=== PATIENT | male | born 2000 | race Caucasian/White ===

== ENCOUNTER 2021-08-16 22:20 | Emergency (ER) | payer OTHER ==
[~2021-08-16] VITALS: Ht 177.8 cm; Wt 68.2 kg
[2021-08-16 22:21] VITALS: BP 127/69
[2021-08-17] MEDS ORDERED: LIDOCAINE 1% 10 ML VIAL SQ ONE (00:15)
[2021-08-17] MEDS ORDERED: BACITRACIN 0.9 GM PACKET OINTMENT TP ONE (00:15)
== END 2021-08-17 00:58 | disposition home or self-care (01) ==
LOC: EMS 22:25
DX: S61.211A Laceration without foreign body of left index finger without damage to nail, initial encounter (principal); W45.8XXA Other foreign body or object entering through skin, initial encounter; Y93.89 Activity, other specified; Y92.89 Other specified places as the place of occurrence of the external cause; Y99.8 Other external cause status
CPT/HCPCS: 12001; 99282; J3490

== ENCOUNTER 2021-11-10 23:57 | Emergency (ER) | payer OTHER ==
[~2021-11-10] VITALS: Ht 175.3 cm; Wt 50.3 kg
[2021-11-10 23:59] VITALS: BP 134/84
== END 2021-11-11 01:51 | disposition left against medical advice (07) ==
LOC: EMS 23:58
DX: Z53.21 Procedure and treatment not carried out due to patient leaving prior to being seen by health care provider (principal)

== ENCOUNTER 2021-11-23 23:03 | Emergency (ER) | payer OTHER ==
[~2021-11-23] VITALS: Ht 175.3 cm; Wt 50.3 kg
[2021-11-23] MEDS ORDERED: IBUP-2071 PO (23:17)
[2021-11-23] MEDS ORDERED: AMOX500C2 PO (23:17)
[2021-11-24 04:23] VITALS: BP 114/65
== END 2021-11-24 05:14 | disposition home or self-care (01) ==
LOC: EMS 23:14
DX: S00.03XA Contusion of scalp, initial encounter (principal); S00.83XA Contusion of other part of head, initial encounter; S10.93XA Contusion of unspecified part of neck, initial encounter; S40.012A Contusion of left shoulder, initial encounter; F10.20 Alcohol dependence, uncomplicated; F12.10 Cannabis abuse, uncomplicated; F17.210 Nicotine dependence, cigarettes, uncomplicated; Y04.0XXA Assault by unarmed brawl or fight, initial encounter; Y93.89 Activity, other specified; Y92.89 Other specified places as the place of occurrence of the external cause; Y99.8 Other external cause status
CPT/HCPCS: 70450; 70486; 71045; 99285

== ENCOUNTER 2022-02-06 11:03 | Emergency (ER) | payer OTHER ==
[~2022-02-06] VITALS: Ht 177.8 cm; Wt 59.1 kg
[~2022-02-06 11:03] MED LIST: AMOX500C2 PO; IBUP-2071 PO
[2022-02-06] MEDS ORDERED: ARIP5TAB37 PO (11:08)
[2022-02-06] MEDS ORDERED: ARIP10TA38 PO (11:59)
[2022-02-06] MEDS ORDERED: EMTR1TAB13 PO (11:59)
[2022-02-06 13:04] VITALS: BP 105/60
[2022-02-06] MEDS ORDERED: CEPH-558 PO (13:05)
== END 2022-02-06 13:25 | disposition home or self-care (01) ==
LOC: EMS 11:05
DX: S61.411A Laceration without foreign body of right hand, initial encounter (principal); J45.909 Unspecified asthma, uncomplicated; M41.9 Scoliosis, unspecified; F17.210 Nicotine dependence, cigarettes, uncomplicated; F15.90 Other stimulant use, unspecified, uncomplicated; F12.90 Cannabis use, unspecified, uncomplicated; W25.XXXA Contact with sharp glass, initial encounter; Y93.89 Activity, other specified; Y92.89 Other specified places as the place of occurrence of the external cause; Y99.8 Other external cause status
CPT/HCPCS: 12001; 99283

== ENCOUNTER 2023-10-15 01:02 | Inpatient (IN) | payer MEDICAID, OTHER ==
[~2023-10-15] VITALS: Ht 167.6 cm; Wt 45.8 kg
[~2023-10-15 01:02] MED LIST changes: -AMOX500C2 PO; +ARIP10TA38 PO; +CEPH-558 PO; +EMTR1TAB13 PO; +IBUP-1493 PO; -IBUP-2071 PO
[2023-10-15 01:55] LABS: EOSINOPHILS % (AUTO) 0.2 % (1.0-6.0); HEMATOCRIT 45.3 % (41-53); HEMOGLOBIN 15.8 g/dL (13.5-17.5); LYMPHOCYTES # (AUTO) 2.9 K/uL (1.0-4.8); MEAN CORPUSCULAR HEMOGLOBIN 33.2 pg (26.0-34.0); MEAN CORPUSCULAR VOLUME 95 fL (80-100); MONOCYTES # (AUTO) 0.6 K/uL (0.1-1.0); MONOCYTES % (AUTO) 8.6 % (2.0-9.0); NEUTROPHILS # (AUTO) 3.2 K/uL (1.8-7.7); NEUTROPHILS % (AUTO) 47.2 % (40.0-70.0); PLATELET COUNT (AUTO) 278 K/uL (150-450); RED BLOOD CELL COUNT(AUTO) 4.77 MIL/uL (4.50-5.90); RED CELL DISTRIBUTION WIDTH 13.5 % (11.5-14.5); WHITE BLOOD COUNT (AUTO) 6.7 K/uL (4.5-11.0)
[2023-10-15 02:03] LABS: ANION GAP 10 mmol/L (8-16); CALCIUM, TOTAL 9.3 mg/dL (8.8-10.5); CARBON DIOXIDE 28 mmol/L (22-29); CHLORIDE 103 mmol/L (98-107); CREATININE 1.04 mg/dL (0.60-1.30); GLOMERULAR FILTR. RATE CALC > 60 mL/min (>60); GLUCOSE,RANDOM 100 mg/dL (70-110); POTASSIUM 3.8 mmol/L (3.5-5.1); SODIUM SERUM 141 mmol/L (136-145); UREA NITROGEN, BLOOD 14 mg/dL (7-18)
[2023-10-15 02:10] LABS: ALANINE AMINOTRANSFERASE 22 U/L (12-78); ALBUMIN 4.2 g/dL (3.4-5.0); ALKALINE PHOSPHATASE 82 U/L (46-116); ASPARTATE AMINOTRANSFERASE 15 U/L (15-37); BILIRUBIN,TOTAL 0.8 mg/dL (0.1-1.0)
[2023-10-15 02:14] LABS: ALCOHOL, BLOOD (SERUM) < 3 mg/dL (0-10)
[2023-10-15] MEDS: LORazepam 1 MG TABLET PO ONE (02:18)
[2023-10-15] MEDS: ACETAMINOPHEN 500 MG TABLET PO ONE (02:18)
[2023-10-15 03:27] LABS: ALCOHOL, URINE DRUG SCREEN NEGATIVE (NEGATIVE); AMPHET/METH SCREEN,URINE POSITIVE (NEGATIVE); BARBITURATE SCREEN, URINE NEGATIVE (NEGATIVE); BENZODIAZEPINES SCREEN,URINE NEGATIVE (NEGATIVE); CANNABINOID SCREEN,URINE POSITIVE (NEGATIVE); COCAINE SCREEN,URINE NEGATIVE (NEGATIVE); METHADONE SCREEN, URINE NEGATIVE (NEGATIVE); OPIATE SCREEN,URINE NEGATIVE (NEGATIVE); PHENCYCLIDINE SCREEN,URINE NEGATIVE (NEGATIVE)
[2023-10-15] MEDS ORDERED: HALOPERIDOL 5 MG TABLET PO PRN (03:45)
[2023-10-15 06:03] LABS: APPEARANCE,URINE CLEAR (CLEAR); BILIRUBIN,URINE NEGATIVE (NEGATIVE); COLOR,URINE YELLOW (YELLOW); GLUCOSE, URINE (UA) NEGATIVE (NEGATIVE); LEUKOCYTE ESTERASE ,URINE NEGATIVE (NEGATIVE); NITRATE,URINE NEGATIVE (NEGATIVE); OCCULT BLOOD,URINE NEGATIVE (NEGATIVE); PROTEIN,URINE TRACE mg/dL (NEGATIVE); SPECIFIC GRAVITIY, URINE 1.024 (1.003-1.030); UROBILINOGEN,URINE <=1.0 mg/dL (<=1.0)
[2023-10-15 10:33] LABS: COVID AG,FIA SOURCE NASAL SWAB
[2023-10-15 10:53] LABS: SARS-COV2 (COVID) ANTIGEN,FIA Negative (Negative)
[2023-10-15] MEDS ORDERED: HALOPERIDOL LACTATE 5 MG/ML VIAL ONE (11:34)
[2023-10-15] MEDS ORDERED: LORazepam 2 MG/ML VIAL ONE (11:34)
[2023-10-15] MEDS ORDERED: DiphenhydrAMINE HCL 50 MG/ML VIAL ONE (11:34)
[2023-10-15] MEDS: LORazepam 2 MG/ML VIAL IM ONE (11:41)
[2023-10-15] MEDS: DiphenhydrAMINE HCL 50 MG/ML VIAL IM ONE (11:42)
[2023-10-15] MEDS ORDERED: BICT1TAB PO (11:43)
[2023-10-15] MEDS: HALOPERIDOL LACTATE 5 MG/ML VIAL IM ONE (11:43)
[2023-10-16 00:19] VITALS: BP 97/61; PULSE 50; RESP 18; TEMP 97.7
[2023-10-16 00:22] VITALS: BP 97/61; PULSE 50; RESP 18; TEMP 97.7; O2SAT 99
[2023-10-16 08:15] VITALS: BP 91/59; PULSE 95; RESP 17; TEMP 97.2; O2SAT 95
[2023-10-16] MEDS: DIVALPROEX SODIUM 500 MG DR TABLET PO SCH (16:29)
[2023-10-16] MEDS ORDERED: ACETAMINOPHEN 325 MG TABLET PO PRN (18:15)
[2023-10-16] MEDS ORDERED: LOPERAMIDE HCL 2 MG CAPSULE PO PRN (18:15)
[2023-10-16] MEDS ORDERED: ALBUTEROL SULFATE HFA 90 MCG/PUFF 8 GM INHALER IH PRN (18:15)
[2023-10-16] MEDS ORDERED: DOCUSATE SODIUM 100 MG CAPSULE PO PRN (18:15)
[2023-10-16] MEDS ORDERED: OMEPRAZOLE 20 MG CAPSULE PO PRN (18:15)
[2023-10-16] MEDS ORDERED: BENZOCAINE/MENTHOL LOZENGE PO PRN (18:15)
[2023-10-16] MEDS ORDERED: ONDANSETRON HCL 4 MG TABLET PO PRN (18:15)
[2023-10-16] MEDS ORDERED: IBUPROFEN 600 MG TABLET PO PRN (18:15)
[2023-10-16] MEDS ORDERED: MAG HYDROX/ALUMINUM HYD/SIMETH ES 30 ML SUSPENSION UDCUP PO PRN (18:15)
[2023-10-16] MEDS ORDERED: CloNIDine HCL 0.1 MG TABLET PO PRN (18:15)
[2023-10-16] MEDS ORDERED: BACITRACIN 28 GM OINTMENT TP PRN (18:15)
[2023-10-16] MEDS ORDERED: MAGNESIUM HYDROXIDE SUSPENSION 30 ML UDCUP PO PRN (18:15)
[2023-10-16] MEDS ORDERED: PETROLATUM,WHITE 28 GM JELLY TP PRN (18:15)
[2023-10-16] MEDS: BICTEGRAV/EMTRICIT/TENOFOV ALA 50-200-25 MG TABLET PO SCH (19:11)
[2023-10-16 23:15] VITALS: BP 103/63; PULSE 61; RESP 18; TEMP 98.1; O2SAT 99
[2023-10-17 08:21] VITALS: BP 98/63; PULSE 65; RESP 16; TEMP 98.1; O2SAT 99
[2023-10-17] MEDS: NICOTINE 21 MG/24 HOUR PATCH TD SCH (11:42)
[2023-10-17] MEDS: LORazepam 2 MG TABLET PO PRN (18:55)
[2023-10-17] MEDS: ZOLPIDEM TARTRATE 10 MG TABLET PO PRN (20:16)
[2023-10-17 21:13] VITALS: BP 97/61; PULSE 63; RESP 18; TEMP 98.2; O2SAT 99
[2023-10-18 08:17] VITALS: BP 96/60; PULSE 79; RESP 17; TEMP 97.8; O2SAT 99
[2023-10-18] MEDS ORDERED: DIVA-112 PO (11:04)
== END 2023-10-18 13:40 | disposition home or self-care (01) | DRG 753 ==
LOC: EMS 01:02 → 3EI 11:03 → 3EC 20:30
PROVIDERS: ADMIT Psychiatry & Neurology Psychiatry; ATTEND Psychiatry & Neurology Psychiatry
DX: F31.9 Bipolar disorder, unspecified (principal); R45.851 Suicidal ideations; E11.9 Type 2 diabetes mellitus without complications; F20.9 Schizophrenia, unspecified; F17.210 Nicotine dependence, cigarettes, uncomplicated; F41.9 Anxiety disorder, unspecified; Z20.822 Contact with and (suspected) exposure to COVID-19; G47.00 Insomnia, unspecified; K59.00 Constipation, unspecified; J45.909 Unspecified asthma, uncomplicated; F15.90 Other stimulant use, unspecified, uncomplicated; F12.90 Cannabis use, unspecified, uncomplicated; Z79.899 Other long term (current) drug therapy
CPT/HCPCS: 80053; 80307; 81003; 85025; 99285; G0480; J1200; J1630; J2060; Q9967

== ENCOUNTER 2024-08-15 20:40 | Emergency (ER) | payer MEDICAID ==
[~2024-08-15] VITALS: Ht 175.3 cm; Wt 63.0 kg
[~2024-08-15 20:40] MED LIST changes: -ARIP10TA38 PO; +BICT1TAB PO; -CEPH-558 PO; +DIVA-112 PO; -EMTR1TAB13 PO; -IBUP-1493 PO
[2024-08-15 21:00] VITALS: BP 118/91; PULSE 100; RESP 16; TEMP 98; O2SAT 100
[2024-08-15] MEDS: IBUPROFEN 400 MG TABLET PO ONE (22:46)
== END 2024-08-15 23:02 | disposition home or self-care (01) ==
LOC: EMS 20:40
DX: S92.511A Displaced fracture of proximal phalanx of right lesser toe(s), initial encounter for closed fracture (principal); S20.212A Contusion of left front wall of thorax, initial encounter; J45.909 Unspecified asthma, uncomplicated; F12.90 Cannabis use, unspecified, uncomplicated; F17.210 Nicotine dependence, cigarettes, uncomplicated; Z79.899 Other long term (current) drug therapy; X58.XXXA Exposure to other specified factors, initial encounter; Y93.89 Activity, other specified; Y92.89 Other specified places as the place of occurrence of the external cause; Y99.8 Other external cause status
CPT/HCPCS: 71100; 99284